=== PATIENT | female | born 1960 | race Caucasian/White ===

== ENCOUNTER 2016-10-07 06:08 | Day surgery (SDC) | payer OTHER ==
[~2016-10-07 06:08] MED LIST: BROMELAIN500 MG PO; EFFEXXR75 PO; HORMONE PATCH; METHOC750B; MEVACOR40 MG; PRILO PO; PROMETRIUM PO
== END 2016-10-07 23:59 | disposition home or self-care (01) ==
LOC: MSC 06:08
PROC: 0J060ZZ Alteration of Chest Subcutaneous Tissue and Fascia, Open Approach (ICD-10-PCS; principal; 2016-10-07)
DX: Z41.1 Encounter for cosmetic surgery (principal)

== ENCOUNTER 2016-10-07 06:08 | Day surgery (SDC) | payer BC ==
[2016-10-01 13:17] LABS: HEMATOCRIT 37.5 % (36.0-48.0); HEMOGLOBIN 12.4 g/dL (12.0-16.0)
== END 2016-10-07 23:59 | disposition home or self-care (01) ==
LOC: MSC 06:08
PROVIDERS: Surgery Plastic and Reconstructive Surgery
PROC: 0HBV0ZZ Excision of Bilateral Breast, Open Approach (ICD-10-PCS; principal; 2016-10-07 07:15)
DX: N62 Hypertrophy of breast (principal); M19.90 Unspecified osteoarthritis, unspecified site; F41.9 Anxiety disorder, unspecified; Z79.899 Other long term (current) drug therapy; Z98.890 Other specified postprocedural states
CPT/HCPCS: 85014; 85018; 88305; 93005; A9270-GY; J0690; J2250; J2270; J2405; J2550; J2710; J3010